=== PATIENT | female | born 1940 | race Caucasian/White ===

== ENCOUNTER 2021-07-24 10:00 | Observation (INO) | payer MEDICARE ==
[~2021-07-24] VITALS: Ht 160 cm; Wt 68.8 kg
[2021-07-24 12:55] VITALS: BP 133/62
[2021-07-24 13:08] LABS: BASOPHILS % (AUTO) 0.1 % (0.0-5.0); EOSINOPHILS % (AUTO) 1.8 % (0.0-8.0); HEMATOCRIT 40.3 % (36-48); LYMPHOCYTES % (AUTO) 12.9 % (21.0-51.0); MEAN CORPUSCULAR HEMOGLOBIN 31.5 pg (27.0-33.0); MEAN CORPUSCULAR HGB CONC 32.3 g/dL (32.0-36.0); MEAN CORPUSCULAR VOLUME 97.6 fL (79-99); MONOCYTES % (AUTO) 6.8 % (3.0-13.0); NEUTROPHILS % (AUTO) 77.9 % (40.0-77.0); PLATELET COUNT (AUTO) 168 K/uL (130-400); RED BLOOD CELL COUNT(AUTO) 4.13 MIL/uL (4.00-5.50); RED CELL DISTRIBUTION WIDTH 14.3 % (11.0-15.5); WHITE BLOOD COUNT (AUTO) 10.3 K/uL (4.8-10.8)
[2021-07-24 13:10] LABS: APPEARANCE,URINE Cloudy (CLEAR); BILIRUBIN,URINE Negative (NEGATIVE); COLOR,URINE Dark Yellow (YELLOW); GLUCOSE, URINE (UA) Negative (NEGATIVE); KETONES,URINE Trace mg/dL (NEGATIVE); LEUKOCYTE ESTERASE ,URINE Trace (NEGATIVE); NITRATE,URINE Negative (NEGATIVE); OCCULT BLOOD,URINE Negative (NEGATIVE); PH,URINE 5.5 (5.0-8.0); PROTEIN,URINE Trace mg/dL (NEGATIVE)
[2021-07-24 13:18] LABS: CREATININE 0.9 mg/dL (0.5-1.5); POTASSIUM 3.8 mmol/L (3.5-5.1)
[2021-07-24 13:20] LABS: BACTERIA,URINE Few /HPF (None Seen)
[2021-07-24 13:21] LABS: INR 0.98 (0.85-1.15); PROTHROMBIN TIME 10.7 SEC (9.6-11.6); SQUAMOUS EPITHELIAL CELL,UR Few /HPF (0-2)
[2021-07-24 13:22] LABS: CALCIUM OXALATE CRYSTALS,UR Rare /LPF (None Seen)
[2021-07-25] MEDS ORDERED: VITAD50000 PO (13:59)
[2021-07-25] MEDS ORDERED: MULT-1283 PO (13:59)
[2021-07-25] MEDS ORDERED: LISI1TAB49 PO (13:59)
[2021-07-25] MEDS ORDERED: AREDS II PO (13:59)
[2021-07-25] MEDS ORDERED: VITA100C27 PO (13:59)
[2021-07-25] MEDS ORDERED: OMEP20TA25 PO (13:59)
[2021-07-25] MEDS ORDERED: KRIL1CAP19 PO (13:59)
[2021-07-25] MEDS ORDERED: RALO60TA13 PO (13:59)
[2021-07-25] MEDS ORDERED: CALC1CAP PO (13:59)
[2021-07-25] MEDS ORDERED: [UNRECOGNIZED DRUG - CODE] PO (13:59)
[2021-07-25] MEDS ORDERED: ACET-2743 PO (13:59)
[2021-07-25] MEDS ORDERED: ATOR20TA65 PO (13:59)
[2021-07-25] MEDS ORDERED: UBID100C10 PO (13:59)
[2021-07-25] MEDS ORDERED: MAGN200T4 PO (13:59)
[2021-07-28] VITALS (26 sets, daily range): BP systolic 122–189; BP diastolic 58–96
[2021-07-28] MEDS: CEFAZOLIN SODIUM 1 GM VIAL IVP SCH ×4 (06:00→20:42)
[2021-07-28] MEDS ORDERED: LACTATED RINGERS 1000ML 1,000 ML IV ONE (06:40)
[2021-07-28] MEDS ORDERED: PHARMACY COMMUNICATION MISC SCH (08:00)
[2021-07-28] MEDS ORDERED: LIDOCAINE HCL-MPF 1% 2ML VIAL IV PRN (09:00)
[2021-07-28] MEDS ORDERED: POTASSIUM CHLORIDE 10% ELIXIR 20 MEQ/15 ML UDCUP PO PRN (09:00)
[2021-07-28] MEDS ORDERED: DiphenhydrAMINE HCL 50 MG/ML VIAL IVP PRN (09:00)
[2021-07-28] MEDS: ASPIRIN 81 MG EC TAB PO SCH ×2 (09:00→20:42)
[2021-07-28] MEDS ORDERED: CALCIUM CARB 500MG PO PRN (09:00)
[2021-07-28] MEDS ORDERED: TRAMADOL HCL 50 MG TABLET PO PRN (09:00)
[2021-07-28] MEDS ORDERED: 0.9%NACL 1000ML 1,000 ML IV SCH (09:00)
[2021-07-28] MEDS: POLYETHYLENE GLYCOL 3350 17 GM POWD.PACK PO SCH (09:00)
[2021-07-28] MEDS: CELECOXIB 200 MG CAP PO SCH ×2 (09:00→20:42)
[2021-07-28] MEDS ORDERED: KCL 20 MEQ ERTAB PO PRN (09:00)
[2021-07-28] MEDS ORDERED: TEMAZEPAM 15 MG CAPSULE PO PRN (09:00)
[2021-07-28] MEDS ORDERED: ONDANSETRON 4MG INJ IVP PRN (09:00)
[2021-07-28] MEDS ORDERED: KETOROLAC 15MG/ML VIAL (15MG/ML) IV PRN (09:00)
[2021-07-28] MEDS ORDERED: OXYCODONE HCL 5 MG TAB PO PRN ×2 (09:00)
[2021-07-28] MEDS: ACETAMINOPHEN 500 MG TABLET PO SCH ×2 (09:00→16:06)
[2021-07-28] MEDS ORDERED: POTASSIUM CHLORIDE 20MEQ/100ML 100 ML IV PRN (09:00)
[2021-07-28] MEDS: PREGABALIN 25 MG CAP PO SCH ×2 (09:00→20:42)
[2021-07-28] MEDS ORDERED: FERROUS FUMARATE 324 MG TABLET PO PRN (09:00)
[2021-07-28] MEDS ORDERED: TRANEXAMIC ACID 1000MG/10ML ONE ×2 (09:41→13:00)
[2021-07-28] MEDS ORDERED: CEFAZOLIN SODIUM 1 GM VIAL ONE (09:41)
[2021-07-28] MEDS ORDERED: SUCCINYLCHOLINE CHLORIDE 20 MG/ML 10 ML VIAL ONE (10:16)
[2021-07-28] MEDS ORDERED: LIDOCAINE PF 100MG/5ML (2%) SYRINGE 5ML ONE (10:16)
[2021-07-28] MEDS ORDERED: ONDANSETRON 4MG INJ ONE (10:17)
[2021-07-28] MEDS ORDERED: ROCURONIUM 10MG/1ML SYR 10 MG/ML ML ONE (10:17)
[2021-07-28] MEDS ORDERED: MIDAZOLAM HCL 1 MG/ML 2ML VIAL ONE (10:17)
[2021-07-28] MEDS ORDERED: GLYCOPYRROLATE 1 MG/5 ML SYRINGE ONE (10:17)
[2021-07-28] MEDS ORDERED: DEXAMETHASONE SOD PHOSPHATE 10MG/ML 1ML VIAL ONE (10:17)
[2021-07-28] MEDS ORDERED: PROPOFOL 10 MG/ML 20ML VIAL IV ONE (10:17)
[2021-07-28] MEDS ORDERED: NEOSTIGMINE 5MG/5ML SYR IV ONE (10:17)
[2021-07-28] MEDS ORDERED: FENTANYL CITRATE PF 50 MCG/1 ML 2ML VIAL ONE (10:18)
[2021-07-28] MEDS ORDERED: ROPIVACAINE 0.5% 5MG/ML 30ML IJ ONE (10:23)
[2021-07-28] MEDS ORDERED: MEPERIDINE-PF 25 MG/ML SYG ONE ×2 (12:30→13:07)
[2021-07-29] MEDS ORDERED: PANTOPRAZOLE 40 MG TAB DR PO PRN (02:00)
[2021-07-29] MEDS: ACETAMINOPHEN 500 MG TABLET PO SCH ×3 (03:31→17:00)
[2021-07-29 04:49] VITALS: BP 120/59
[2021-07-29 05:17] LABS: HEMATOCRIT 35.7 % (36-48); MEAN CORPUSCULAR HEMOGLOBIN 30.7 pg (27.0-33.0); MEAN CORPUSCULAR HGB CONC 32.2 g/dL (32.0-36.0); MEAN CORPUSCULAR VOLUME 95.2 fL (79-99); RED BLOOD CELL COUNT(AUTO) 3.75 MIL/uL (4.00-5.50); RED CELL DISTRIBUTION WIDTH 14.2 % (11.0-15.5); WHITE BLOOD COUNT (AUTO) 9.1 K/uL (4.8-10.8)
[2021-07-29 05:35] LABS: CREATININE 0.9 mg/dL (0.5-1.5); POTASSIUM 4.1 mmol/L (3.5-5.1)
[2021-07-29 08:00] VITALS: BP 102/52
[2021-07-29] MEDS: ATORVASTATIN 20 MG TABLET PO SCH (08:27)
[2021-07-29] MEDS: ASPIRIN 81 MG EC TAB PO SCH ×2 (08:27→20:52)
[2021-07-29] MEDS: CA 600MG+VIT D 400 UNIT TAB 1 TAB TABLET PO SCH ×2 (08:27→20:52)
[2021-07-29] MEDS: CELECOXIB 200 MG CAP PO SCH ×2 (08:27→20:53)
[2021-07-29] MEDS: PREGABALIN 25 MG CAP PO SCH ×2 (08:27→20:53)
[2021-07-29] MEDS: LISINOPRIL 10 MG TABLET PO SCH (08:28)
[2021-07-29] MEDS: POLYETHYLENE GLYCOL 3350 17 GM POWD.PACK PO SCH (08:28)
[2021-07-29] MEDS: HYDROCHLOROTHIAZIDE 25 MG TABLET PO SCH (08:28)
[2021-07-29] MEDS: **HM** VIT D3 5000 UNITS PO SCH (08:29)
[2021-07-29] MEDS: RALOXIFENE HCL 60 MG TABLET PO SCH (09:00)
[2021-07-29 10:30] VITALS: BP 125/56
[2021-07-29 15:30] VITALS: BP 110/46
[2021-07-29 20:35] VITALS: BP 109/55
[2021-07-29] MEDS ORDERED: MAGNESIUM OXIDE 400 MG TABLET PO SCH (21:00)
[2021-07-29 23:55] VITALS: BP 110/47
[2021-07-30] MEDS: ACETAMINOPHEN 500 MG TABLET PO SCH ×2 (01:08→08:36)
[2021-07-30 04:05] VITALS: BP 109/67
[2021-07-30 07:30] VITALS: BP 142/65
[2021-07-30] MEDS: HYDROCHLOROTHIAZIDE 25 MG TABLET PO SCH (08:33)
[2021-07-30] MEDS: CELECOXIB 200 MG CAP PO SCH (08:34)
[2021-07-30] MEDS: ATORVASTATIN 20 MG TABLET PO SCH (08:34)
[2021-07-30] MEDS: PREGABALIN 25 MG CAP PO SCH (08:34)
[2021-07-30] MEDS: RALOXIFENE HCL 60 MG TABLET PO SCH (08:34)
[2021-07-30] MEDS: ASPIRIN 81 MG EC TAB PO SCH (08:35)
[2021-07-30] MEDS: POLYETHYLENE GLYCOL 3350 17 GM POWD.PACK PO SCH (08:35)
[2021-07-30] MEDS: LISINOPRIL 10 MG TABLET PO SCH (08:35)
[2021-07-30] MEDS: CA 600MG+VIT D 400 UNIT TAB 1 TAB TABLET PO SCH (08:35)
[2021-07-30] MEDS: **HM** VIT D3 5000 UNITS PO SCH (08:36)
[2021-07-30 11:01] VITALS: BP 124/49
[2021-07-30] MEDS ORDERED: ACETAMINOPHEN 500 MG TABLET PO SCH (14:00)
[2021-07-30 16:00] VITALS: BP 132/62
[2021-07-30] MEDS ORDERED: AEC81 PO (19:11)
[2021-07-30] MEDS ORDERED: HYDR-4060 PO (19:11)
[2021-07-31] MEDS ORDERED: BISACODYL 10 MG SUPP.RECT RC PRN (09:00)
== END 2021-07-30 20:30 | disposition home or self-care (01) ==
LOC: DAHIP 07-28 06:22 → INTOOBSV 07-28 06:22 → 4AH 07-28 14:01
PROVIDERS: ADMIT Orthopaedic Surgery; ATTEND Orthopaedic Surgery
DX: M17.11 Unilateral primary osteoarthritis, right knee (principal); Z20.822 Contact with and (suspected) exposure to COVID-19; D62 Acute posthemorrhagic anemia; E78.00 Pure hypercholesterolemia, unspecified; I10 Essential (primary) hypertension; K21.9 Gastro-esophageal reflux disease without esophagitis; M85.80 Other specified disorders of bone density and structure, unspecified site; Z90.49 Acquired absence of other specified parts of digestive tract; Z79.899 Other long term (current) drug therapy
CPT/HCPCS: 27447; 36415 ×2; 64447; 71045; 76942; 80048 ×2; 81001; 85025; 85027; 85610; 87088; 87635; 87641; 93005; 96374; 96375; 96376; 97039 ×4; 97116 ×5; 97161; 97530 ×4; A4215; A4221; A4222; A4223; A4600 ×2; A4649 ×5; A4663; A4930 ×2; A5120; A9272; C1776 ×2; G0378 ×54; J0330; J0690 ×4; J1100; J1885; J2001; J2175 ×2; J2405; J2704; J2710; J2795; J3010; J3490 ×3; J7120; J2250

== ENCOUNTER → 2022-03-17 | Outpatient (CLI) | payer MEDICARE ==
[~2022-03-17] MED LIST: ACET-2743 PO; AEC81 PO; ATOR20TA65 PO; CALC1CAP PO; HYDR-4060 PO; KRIL1CAP19 PO; LISI1TAB49 PO; MAGN200T4 PO; MULT-1283 PO; OMEP20TA20 PO; RALO60TA13 PO; UBID100C10 PO; VITA100C27 PO; VITAD50000 PO
== END | disposition home or self-care (01) ==
LOC: RAH 12:31
PROVIDERS: ATTEND Physician Assistant
DX: M47.816 Spondylosis without myelopathy or radiculopathy, lumbar region (principal); M48.061 Spinal stenosis, lumbar region without neurogenic claudication; M85.88 Other specified disorders of bone density and structure, other site; Z90.49 Acquired absence of other specified parts of digestive tract
CPT/HCPCS: 72114